=== PATIENT | female | born 2000 | race Caucasian/White ===

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

== ENCOUNTER 2021-01-12 17:32 | Outpatient (REF) | payer OTHER, SELFPAY ==
[2021-01-14 10:14] LABS: COVID-19 RT-PCR UVMMC Result Negative (Negative)
== END 2021-01-12 17:33 | disposition home or self-care (01) ==
LOC: LBN 17:32
PROVIDERS: PCP Family Medicine; Visit Provider Nurse Practitioner Family
DX: Z20.822 Contact with and (suspected) exposure to COVID-19 (principal); J02.9 Acute pharyngitis, unspecified
CPT/HCPCS: U0003